=== PATIENT | female | born 1985 | race Caucasian/White ===

== ENCOUNTER 2022-02-13 15:25 | Outpatient (CLI) | payer BC, SELFPAY ==
--- OUTSIDE RECORDS SUMMARY | 2022-02-13 15:55 | XMS_ITS | Clinical Summary ---
:1985 Author Organization [facility] [place] [address] Care Team Providers Name Role Phone Pcp, No Primary Care Provider Unavailable Pcp, No Unavailable Unavailable Allergies No known active allergies Medications Medication Sig Dispensed Refills Start Date End Date Status vit,modesto Take 1 Tablet by 0 Active 74/iron/folic mouth once daily. ( VITAMIN 1+1 ORAL) Active Problems Problem Noted Date Melanoma 11/02/2020 Overview: 07/22/2019 Right upper thigh, Melanoma in situ: Excision 07/31/2019 2016 [facility]: [facility] Pharyngitis 10/27/2014 Family History Medical History Relation Name Comments Genetic Other Diabetes Gfather Relation Name Status Comments Other Social History Tobacco Use Types Packs/Day Years Used Date Never Smoker Smokeless Tobacco: Never Used Alcohol Use Standard Drinks/Week Comments Yes 0 (1 standard drink = 0.6 oz pure alcoho l) social Alcohol Habits Answer Date Recorded How often do you have a drink containing alcohol? Not asked How many drinks containing alcohol do you have on a typical Not asked day when you are drinking? How often do you have six or more drinks on one occasion? No t asked Comment: social 10/27/2014 Sex Assigned at Date Recorded Not on file Obstetrics History Para Term AB IAB SAB Ectopic Multiple Living Live Births 0 0 0 0 0 0 0 0 Last Filed Vital Signs Vital Sign Reading Time Taken Comments Blood Pressure 122/83 04/10/2021 11:38 AM ACCIDENT INVESTIGATOR Pulse 105 04/10/2021 11:38 AM ACCIDENT INVESTIGATOR Temperature 36.6 ??C (97.9 ??F) 04/10/2021 11:38 AM ACCIDENT INVESTIGATOR Respiratory Rate 16 04/10/2021 11:38 AM ACCIDENT INVESTIGATOR Oxygen Saturation 100% 04/10/2021 11:38 AM ACCIDENT INVESTIGATOR Inhaled Oxygen Concentration - - Weight 79.4 kg (175 lb) 04/10/2021 11:38 AM ACCIDENT INVESTIGATOR Height 162.6 cm (5' 4) 04/10/2021 11:38 AM ACCIDENT INVESTIGATOR Body Mass Index 30.04 04/10/2021 11:38 AM ACCIDENT INVESTIGATOR Plan of Treatment Health Maintenance Due Date Last Done Comments Tdap 1997 Depression screening for age 12+ 1998 Hepatitis C screening for age 18-79 2004 Tetanus booster 2006 Pap test for age 21-65 2007 COVID-19 vaccine series (4 - Booster 04/20/2021 02/23/2021, 07/02/2020, for Moderna series) 06/04/2020 Influenza for age 9-49 12/08/2021 BMI (ht and wt on same day) for age 0104/10/2022 04/10/2021 18+ Results Not on filefrom Last 3 Months Insurance Payer Benefit Plan / Subscriber ID Effective Dates Phone Addre ss Type Group [employer]UE [employer]OSS BL[employer] OF [id number] 2014-Present [address] [place] [address] [employer] [place] [id number] 2017-Present [address] [place] [address] [address] (Home) [address] [facility] [facility] [address] Kendrick Barajas Personal/Famil Self 1985 [address] (Home) [place] [address] Care Teams Finance Officer Relationship Specialty Start Date End Date Pcp, No PCP - General 10/27/14 . Pcp, No 10/27/14 .
[2022-02-13 17:43] LABS: HIV 1/2/P24 Combo Screen* Negative (Negative)
[2022-02-13 18:29] LABS: Chlamydia DNA Amplified* NOT DETECTED (No Detected); GC DNA Amplified* NOT DETECTED (No Detected)
[2022-02-13 18:35] LABS: Hepatitis B Surface Antigen* Negative (Negative)
[2022-02-13 18:52] LABS: Hepatitis C Virus Antibody* Negative (Negative)
[2022-02-16 05:48] LABS: Rubella Antibody IgG 45.2 IU/mL
[2022-02-16 09:03] LABS: Rapid Plasma Reagin (RPR) Non Reactive (Non Reactive)
== END 2022-02-13 15:26 | disposition home or self-care (01) ==
PROVIDERS: Visit Provider Advanced Practice Midwife
DX: Z34.81 Encounter for supervision of other normal pregnancy, first trimester (principal); Z3A.08 8 weeks gestation of pregnancy
CPT/HCPCS: 76817; 86592; 86703; 86762; 86787; 86803; 86850; 86900; 86901; 87086; 87340; 87491; 87591; 87624; 88175

== ENCOUNTER 2022-04-11 12:45 | Outpatient (CLI) | payer BC, SELFPAY ==
[2022-04-14 08:19] LABS: Dating Other; Family Hx Neural Tube Defect No; Insulin Req Maternal Diabetes No; Maternal Age At Delivery 36.4 yr; Maternal Race Nonblack; Maternal Screen Interpretation Screen Neg; Maternal Weight 180.0 lbs.; MoM for AFP 0.95; Number of Fetuses Singleton; Patient's AFP 31 ng/mL; Smoking No
== END 2022-04-11 12:46 | disposition home or self-care (01) ==
LOC: NFLDREF 12:48
PROVIDERS: Visit Provider Physician Assistant
DX: O09.523 Supervision of elderly multigravida, third trimester (principal); Z3A.16 16 weeks gestation of pregnancy
CPT/HCPCS: 81511

== ENCOUNTER 2022-05-03 14:23 | Outpatient (CLI) | payer BC, SELFPAY | END 2022-05-03 14:24 | disposition home or self-care (01) | LOC: US 14:24 | PROVIDERS: Visit Provider Pediatrics Neonatal-Perinatal Medicine | DX: O09.522 Supervision of elderly multigravida, second trimester (principal); Z3A.19 19 weeks gestation of pregnancy | CPT/HCPCS: 76811 ==

== ENCOUNTER 2022-07-04 15:13 | Outpatient (CLI) | payer BC, SELFPAY | END 2022-07-04 15:14 | disposition home or self-care (01) | LOC: NFLDREF 07-07 10:46 | PROVIDERS: Visit Provider Registered Nurse | DX: Z34.93 Encounter for supervision of normal pregnancy, unspecified, third trimester (principal); Z3A.28 28 weeks gestation of pregnancy | CPT/HCPCS: 86592 ==

== ENCOUNTER 2022-07-06 08:20 | Outpatient (CLI) | payer BC, SELFPAY | END 2022-07-06 08:21 | disposition home or self-care (01) | LOC: NFLDREF 18:19 | PROVIDERS: Visit Provider Registered Nurse | DX: Z34.90 Encounter for supervision of normal pregnancy, unspecified, unspecified trimester (principal); R89.9 Unspecified abnormal finding in specimens from other organs, systems and tissues | CPT/HCPCS: 82951; 82952 ==

== ENCOUNTER 2022-08-01 15:56 | Outpatient (CLI) | payer BC, SELFPAY ==
--- NOTE | 2022-08-01 16:00 | CRLHL7_ITS ---
For Patients: As a result of the Century Cures Act, medical imaging exams and procedure reports are released immediately into your electronic medical record. You may view this report before your referring provider. If you have questions, please contact your health care provider. INDICATION: COVID in . Check growth. TECHNIQUE: Transabdominal obstetrical ultrasound. FINDINGS: Single living intrauterine in breech presentation. Posterior placenta. heart rate 137 beats per minute. Normal amniotic fluid. Single deepest pocket measurement 3.1 cm. Biparietal diameter 8.3 cm, 33 weeks 2 days, 66th percentile. Head circumference 31 cm, 34 weeks 5 days, 69th percentile. Abdominal circumference 29 cm, 33 weeks 0 days, 63rd percentile. Femur length 6.3 cm, 32 weeks 4 days, 38th percentile. Composite calculated ultrasound age 33 weeks 3 days with a sonographic due date of September 16, 2022. Estimated weight 2114 g which lies at the 56 percentile. The head to abdominal circumference ratio is normal at 1.07 (0.95-1.11). IMPRESSION: Single living intrauterine in breech presentation. Composite calculated ultrasound age 33 weeks 3 days with a sonographic due date of September 16, 2022. Dictated by Jareth Mcnair MD @ 08/01/2022 6:58:57 PM (Electronically Signed)
== END 2022-08-01 15:57 | disposition home or self-care (01) ==
LOC: US 15:57
PROVIDERS: Visit Provider Registered Nurse
DX: U07.1 COVID-19 (principal); O98.513 Other viral diseases complicating pregnancy, third trimester; Z3A.33 33 weeks gestation of pregnancy
CPT/HCPCS: 76816

== ENCOUNTER 2022-09-15 05:09 | Inpatient (IN) | payer BC, SELFPAY ==
[2022-09-15] VITALS (37 sets, daily range): BP systolic 92–124; BP diastolic 60–83; PULSE 60–129; RESP 16; TEMP 36.2–36.9; O2SAT 96–99; BMI 32.9
[2022-09-15] MEDS: LACTATED RINGERS 1000 ML 1,000 ML 500 ML IV ×2 (05:51→14:02)
[2022-09-15 06:13] LABS: Basophils Absolute Auto 0.03 K/uL (0.00-0.30); Basophils Percent Auto 0.4 % (0.0-3.0); Eosinophils Absolute Auto 0.14 K/uL (0.00-0.50); Eosinophils Percent Auto 1.8 % (0.0-7.0); Hematocrit 35.2 % (33.0-51.0); Hemoglobin* 12.1 gm/dL (12.0-16.0); Immature Granulocytes Pct Auto 1.3 %; Lymphocytes Absolute Auto 1.97 K/uL (0.90-2.90); Lymphocytes Percent Auto 25.4 % (20-44); Mean Corpuscular HGB Conc 34 gm/dL (32-36); Mean Corpuscular Hemoglobin 32 pg (26-34); Mean Corpuscular Volume 92 fL (80-100); Monocytes Percent Auto 6.7 % (0.0-11.0); Neutrophils Absolute Auto 5.01 K/uL (1.7-7.0); Neutrophils Percent Auto 64.4 % (42.0-72.0); Platelet Count* 200 K/uL (140-440); Red Blood Count 3.82 m/uL (4.00-5.20); White Blood Count* 7.77 K/uL (4.50-11.00)
[2022-09-15 06:15] LABS: Slide Review Reflex No
--- NOTE | 2022-09-15 07:22 | W.ANESCHARGE ---
Anesthesia Charges Start Date/Time Anesthesia Start Date: 09/15/22 Anesthesia Start Time: 07:20 Stop Date/Time Anesthesia Stop Date: 09/15/22 Anesthesia Stop Time: 08:50
[2022-09-15] MEDS: CEFAZOLIN 2 GM INJ IVP (07:28)
[2022-09-15] MEDS: KETOROLAC 30 MG/ML inj IVP ×3 (08:22→20:19)
--- NOTE | 2022-09-15 08:40 | PM.OBPRCCS ---
Procedure Procedure Done: Global Anesthesia type: TAP block Complications: None. Disposition: floor Infant total score - 1 minute: 8 total score - 5 minute: 9 OB Delivery Proc Additional Procedures Tubal Ligation at the time of : No Procedure Details: PREOPERATIVE DIAGNOSES: 1. Intrauterine at 39 0/7 weeks' gestation. 2. History of prior low transverse section x1, desiring repeat. POSTOPERATIVE DIAGNOSES: 1. Intrauterine at 39 0/7 weeks' gestation. 2. History of prior low transverse section x1, desiring repeat. NAME OF PROCEDURE: Repeat low transverse section. Lysis of adhesions. SURGEON: Prema. ANESTHESIA: Spinal. COMPLICATIONS: None. ESTIMATED BLOOD LOSS: 720 mL. DRAINS: Calhoun to gravity. FINDINGS: Live-born female infant, cephalic presentation, nuchal cord x1, Apgars 8 and 9 at 1 and 5 minutes respectively. weight 3500 g or 7 lb 11 oz. Normal appearing uterus, tubes, and ovaries. Moderate adhesions between rectus muscles, fascia, and underlying peritoneal PROCEDURE: After obtaining informed consent, the patient was taken to the operating room where spinal anesthesia was obtained and found to be adequate. She was prepared and draped in the normal sterile fashion in the dorsal supine position with a leftward tilt. A Pfannenstiel skin incision was made with a scalpel along the line of the patient's previous Pfannenstiel scar. This incision was carried down to the underlying layer of fascia with the Bovie. The fascia was incised in the midline and the incision extended laterally. The superior and inferior aspects of the fascial incision were grasped with Jas clamps, elevated and the underlying rectus muscles dissected off sharply and with electrocautery. This dissection took an increased amount of time given the moderate adhesions. The rectus muscles were then in the midline. The Neeraj O retractor was then placed into the incision. The lower uterine segment was then incised in a transverse fashion with the scalpel. Upon entry into the uterus, clear amniotic fluid was noted. The uterine incision was extended laterally with blunt finger fractionation. The 's head was delivered atraumatically, followed by the remainder of the infant's body. The nose and mouth were suctioned with the bulb suction. The cord was doubly clamped and cut, and the infant was handed off the field for evaluation. The placenta was delivered spontaneously with umbilical cord traction and fundal massage. The uterus was cleared of all clots and debris. The uterine incision was reapproximated in a running locking fashion with a 0 chromic suture. A 2nd layer of the same suture was used to imbricate in horizontal fashion. Two additional figure of X sutures of 0 chromic were used at the lateral aspects the hysterotomy incision on both sides for hemostasis. The gutters were irrigated and suctioned. All instruments and retractors were removed. The anterior peritoneum was reapproximated in a running fashion with a 3-0 Vicryl suture. The subfascial tissues were carefully inspected and hemostasis assured. The fascia was reapproximated in a running fashion with a looped 0 Maxon suture. The subcutaneous tissues were copiously irrigated. Hemostasis was assured. The skin was closed in a subcuticular fashion with 4-0 Vicryl. Exofin surgical glue and dressing were applied. A TAP block was administered by the DOCTOR NATUROPATHIC. The patient tolerated the procedure well. Sponge, lap, needle, and instrument counts were reported as correct x2. The patient was taken to the recovery room, awake, and in stable condition. She did receive 2 grams of IV Ancef preoperatively and 30 mg IV Toradol at the conclusion of the procedure.
--- NOTE | 2022-09-15 08:48 | W.PM.NB ---
Nerve Block Nerve Block Time Seen by Provider: 08:40 Date Seen: 09/15/22 Type of block requested by surgeon for post-operative analgesia: TAP Side: bilateral Time out performed: Yes Verification of patient name: Yes Verification of date of : Yes Site marking: site marked Name of person performing procedure: Michael Continuous monitoring Was continuous monitoring of O2 sat, B/P, striping machine operator, recorded every 15 minutes?: Yes Procedure Checklist: sterile prep, needles and gloves Ultrasound guided. Images saved: Yes Medications given in 5ml increments after negative aspiration: Marcaine %: 0.25 mL: 30 Needle gauge: 20 and Exparel mL: 10 Patient tolerated procedure well: Yes Additional comments: Needle noted adjacent to nerve Block Charges Block Charge (with Pro Fee): TAP Bilateral Use of Ultrasound Machine for Block: Yes- US Guidance/pain block
--- NOTE | 2022-09-15 09:01 | W.ANESCHARGE ---
Anesthesia Charges Start Date/Time Anesthesia Start Date: 09/15/22 Anesthesia Start Time: 07:20 Stop Date/Time Anesthesia Stop Date: 09/15/22 Anesthesia Stop Time: 08:50
[2022-09-15] MEDS: LACTATED RINGERS 1000 ML 1,000 ML 125 ML IV (10:01)
[2022-09-15] MEDS: ONDANSETRON 2 MG/ML inj 4 MG IV (10:21)
[2022-09-15] MEDS: PROCHLORPERAZINE 5 MG/ML VIAL 10 MG IV (14:03)
[2022-09-15 15:30] LABS: Blood Urea Nitrogen* 6 mg/dL (5-24); Creatinine* 0.3 mg/dL (0.5-1.5); Est. Creatinine Clearance* 223.86; Estimated Glomerular Filt Rate 141 ml/min
[2022-09-16] VITALS (14 sets, daily range): BP systolic 97–114; BP diastolic 63–75; PULSE 72–81; RESP 16; TEMP 36.4–36.8; O2SAT 96–98
[2022-09-16] MEDS: ACETAMINOPHEN 500 MG TABLET 1000 MG PO ×2 (00:26→21:49)
[2022-09-16] MEDS: KETOROLAC 30 MG/ML inj IVP ×3 (02:28→14:35)
[2022-09-16] MEDS: DOCUSATE SODIUM 100 MG CAPSULE PO (08:13)
--- NOTE | 2022-09-16 08:43 | P.OBPN_ITS ---
OB - PN: A/P Plan day: 1 Plan: routine postop care Comments: Patient would like to be discharged home tomorrow if continues to be stable. OB - PN: Subj Subjective Date Seen: 09/16/22 Patient comments: no complaints, pain well controlled, tolerating diet and flatus present [place] status: and doing well [place] feeding status: exclusively Narrative: Kendrick is a 37 y.o. who was admitted to [facility] for repeat delivery. ?She had an uncomplicated .?The patient feels well. ?The pain is well controlled with current medications. ?She has no new complaints. ?She is and reports things are going well.? the patient has done well.? Vitals have been stable.? She has remained afebrile.? Has a good appetite, is tolerating a general diet. ?She is voiding without difficulty.? She is passing gas and has not had a bowel movement.? She is ambulating and denies any dizziness.? Has Small amount of rubra lochia. OB - PN: Obj Exam Physical Exam: Vital signs: Temp Pulse Resp BP Pulse Ox O2 Del Method 97.5 F L 77 16 97/63 96 Room Air 09/16/22 08:26 09/16/22 08:26 09/16/22 08:26 09/16/22 08:26 09/16/22 08:26 09/16/22 08:26 Narrative: VITAL SIGNS: As noted above. GENERAL APPEARANCE: Alert, cooperative female in no acute distress. MOOD & AFFECT: Normal. ABDOMEN: Soft, non-distended and appropriately tender, uterus well contracted at umbilicus. Incision covered by surgical dressing and this is dry, no surrounding erythema. : Normal lochia. EXTREMITIES: Nonedematous. Well perfused. Nontender. Urinary Catheter Management: Urethral: Cath placed during this visit: yes, but has since been removed by the nurse Reason for continuing: decision to DC catheter Insertion date: 09/15/22 Insertion time: 07:30 Removal date: 09/15/22 Removal time: 22:45 OB - PN: Obj Data Labs Labs: Laboratory Results - last 24 hr 09/15/22 09/16/22 15:08 07:00 Hgb 11.0 L BUN 6 Creatinine 0.3 L Estimated Creat Clear 223.86 Estimated GFR 141
[2022-09-16] MEDS: IBUPROFEN 600 MG TABLET PO (19:40)
[2022-09-17 01:30] VITALS: BP 107/64; PULSE 95; RESP 16; TEMP 36.6; O2SAT 98
[2022-09-17] MEDS: IBUPROFEN 600 MG TABLET PO ×2 (01:30→08:31)
--- NOTE | 2022-09-17 03:58 | P.DS_ITS ---
DS: Providers Provider Date Seen: 09/17/22 Date of admission: 09/15/22 05:09 Primary care physician: Not a Local Provider Admitting Clinician: Ivette Lloyd MD Attending Physician on discharge: Malia Fenton MD Date of Discharge: 09/17/22 DS: Diagnosis Discharge Diagnosis (1) Status post repeat low transverse section: Status: Acute Exam Narrative: Exam Narrative: VITAL SIGNS: As noted above. GENERAL APPEARANCE: Alert, cooperative female in no acute distress. MOOD & AFFECT: Normal. ABDOMEN: Soft, non-distended and appropriately tender, incision healing well no surrounding erythema, induration or abnormal discharge. : Normal lochia. EXTREMITIES: Nonedematous. Well perfused. Nontender. Const: Vital Signs, click to edit/add: Vital Signs - 24 hr 09/16/22 03:59 09/16/22 04:40 09/16/22 04:59 Temperature 98.0 F Pulse Rate [Apical ] 72 Respiratory Rate 16 16 16 Blood Pressure [Le ft Arm] 101/64 Pulse Oximetry 96 Oxygen Delivery Me thod Room Air 09/16/22 05:59 09/16/22 06:59 09/16/22 07:59 Temperature Pulse Rate [Apical ] Respiratory Rate 16 16 16 Blood Pressure [Le ft Arm] Pulse Oximetry Oxygen Delivery Me thod 09/16/22 08:26 09/16/22 16:15 09/16/22 18:01 Temperature 97.5 F L 98.2 F Pulse Rate [Apical ] 77 81 73 Respiratory Rate 16 16 Blood Pressure [Le ft Arm] 97/63 103/68 Pulse Oximetry 96 98 Oxygen Delivery Me thod Room Air Room Air 09/16/22 20:18 Temperature 98.3 F Pulse Rate [Apical ] 73 Respiratory Rate 16 Blood Pressure [Le ft Arm] 114/75 Pulse Oximetry 98 Oxygen Delivery Me thod Room Air DS: Data Data Completed and Pending Labs on day of discharge: Labs from last 24 hours 09/16/22 07:00 Hgb 11.0 L OB - DS: Summary Hospital Course Hospital Course: The patient is a 37 year old G 3 P 2012 at 39 0/7 weeks gestation that was admitted to the Center on 09/15/22 for repeat delivery. She had an uncomplicated delivery. She delivered a viable female infant. She is breast feeding. the patient has done well. Peripartum Data Procedures: Procedures Operation Date: 09/15/22 07:15 Actual Procedure Side Surgeon p Repeat Section Not Applicable Ivette Lloyd MD complications: none [place] Infant Gender: Female Status at Discharge Functional status at discharge: independent ambulation Overall status at discharge: patient is progressing back to baseline Time Spent with Patient Time attestation: Total time spent providing and/or coordinating discharge services: Time spent: Less than 30 minutes Discharge Plan Discharge Disposition: Home, Self-Care Date of Admission: 09/15/22 05:09 Attending Provider on Discharge: Malia Fenton Consulting Providers: Malia Fenton Primary Care Provider: Provider,Not a Local Condition: Stable Anticipated Discharge Date/Time: 09/17/22 12:00 Discharge Medications: Continued cholecalciferol (vitamin D3) 75 mcg (3,000 unit) tablet 75 mcg PO QDAY calcium carbonate-vit D3-min 600 mg calcium- 200 unit tablet 2 tab PO PRN prenat.vits,modesto,mos-ogni-stlew Tablet 1 tab PO QDAY Discharge Orders: Discharge Order (Routine); Ordered 09/17/22 Ordered By: Malia Fenton Patient Education: OB /Breast Feeding Activity Level: No Weight Bearing Activity Detail: No lifting more than 15-20 pounds for 6 weeks, nothing vaginally for 6 weeks Discharge Diet: Regular Follow Up Appointments: Provider,Not a Local [Primary Care Provider] - Forms: MyHealth Info Instructions Discharge Comments: Follow up in clinic in 2 and 6 weeks .
[2022-09-17] MEDS: ACETAMINOPHEN 500 MG TABLET 1000 MG PO (05:39)
[2022-09-17] MEDS: DOCUSATE SODIUM 100 MG CAPSULE PO (08:31)
[2022-09-17 08:35] VITALS: BP 118/81; PULSE 74; RESP 16; TEMP 36.8; O2SAT 96
== END 2022-09-17 11:50 | disposition home or self-care (01) | DRG 540 ==
PROVIDERS: Admitting Provider Obstetrics & Gynecology; Visit Provider Obstetrics & Gynecology
PROC: 10D00Z1 Extraction of Products of Conception, Low, Open Approach (ICD-10-PCS; CPT 59514; principal; 2022-09-15 07:15)
DX: O34.211 Maternal care for low transverse scar from previous cesarean delivery (principal); Z3A.39 39 weeks gestation of pregnancy; Z37.0 Single live birth; G89.18 Other acute postprocedural pain
CPT/HCPCS: 01961; 36415; 51798; 64488; 76815; 76942; 82565; 84520; 85018; 85025; 86850; 86900; 86901; A9270; C9290; J0690; J0780; J1885; J2274; J2370; J2405; J2590; J3490; J7120

== ENCOUNTER 2023-09-05 08:31 | Outpatient (CLI) | payer OTHER, SELFPAY ==
--- OUTSIDE RECORDS SUMMARY | 2023-09-05 08:36 | XMS_ITS | Clinical Summary ---
Author Organization [facility] Address [place], [place] [address] Care Team Providers Care Snag Grinder Name Role Phone Pcp, No Primary Care Provider Unavailabl e Pcp, No Unavailable Unavailable Allergies No known active allergies Medications Medication Sig Dispensed Refills Start Date End Date Status vit,modesto 74/iron/folic ( VITAMIN 1+1 ORAL) Take 1 Tablet by mouth once daily. Active ferrous sulfate, 65 mg elemental, tablet Take 325 mg by mouth once daily. 07/04/2022 Active Active Problems Problem Noted Date Diagnosed Date History of melanoma 02/26/2023 Pain in back 03/10/2019 Fusion of spine, thoracolumbar region 03/10/2019 Adolescent idiopathic scoliosis 03/10/2019 Pharyngitis 10/27/2014 Resolved Problems Problem Noted Date Diagnosed Date Resolved Date Melanoma 11/02/2020 02/26/2023 Overview: 07/22/2019 Right upper thigh, Melanoma in situ: Excision 07/31/2019 2016 Melanoma on neck: [facility] Patient transitioned care to a dermatology clinic in [place]. Immunizations Name Administration Dates Next Due COVID-19 Vaccine Spikevax (M oderna 50mcg/0.5mL) 12YO+ [id number] Formula PF 02/26/2023 Influenza, IIV4 02/26/2023, 2,01/24/2021,01/26/20 20,01/21/2019 Tdap 07/17/2022,12/16/2019,05/28/2015 Family History Medical History Relation Name Comments Genetic Other Diabetes Gfathe r Relation Name Status Comments Other Social History Tobacco Use Types Packs/Day Years Used Date Smoking Tobacco: Never Smokeless Tobacco: Never Alcohol Use Standard Drinks/Week Comments Yes 0 (1 standard drink = 0.6 oz pur e alcohol) social PHQ-2 Answer Date Recorded PHQ-2 TOTAL SCORE 0 02/26/2023 Social Connections Answer Date Recorded Frequency of Communication with Friends and Fami ly Not on file 02/26/2023 Sex and Gender Information Value Date Recorded Sex Assigned at Not on file Gender Identity Not on file Sexual Orientation Not on file Obstetrics History Para Term AB IAB SAB Ectopic Multiple Livin g Live Births 0 0 0 0 0 0 0 0 Last Filed Vital Signs Vital Sign Reading Time Taken Comments Blood Pressure 92/58 02/26/2023 8:05 AM FLOOR MANAGER Pulse 68 02/26/2023 8:05 AM FLOOR MANAGER Temperature 36.6 ??C (97.9 ??F) 04/10/2021 11:[address] Respiratory Rate 16 04/10/2021 11:38 AM FLOOR MANAGER Oxygen Saturation 100% 04/10/2021 11:38 AM FLOOR MANAGER Inhaled Oxygen Concentration - - Weight 80.7 kg (178 lb) 02/26/2023 8:05 AM FLOOR MANAGER Height 162.6 cm (5' 4) 04/10/2021 11:38 AM FLOOR MANAGER Body Mass Index 30.55 04/10/2021 11:38 AM FLOOR MANAGER Plan of Treatment Health Maintenance Due Date Last Done Comments HIV for age 15-65 2001 Hepatitis C screening for age 18-79 2004 BMI (ht and wt on same day) for age 18+ 04/10/2022 04/10/2021 Influenza for age 9-49 12/09/2023 , 01/13/2022, 01/24/2021, Additional history exists Depression screening for age 12+ 02/27/2024 02/26/2023 Pap test for age 21-65 02/13/2025 02/13/2022, 2021 Tetanus booster 07/17/2032 07/17/2022, 09/0 11/2019, 05/28/2015 Tdap Completed 07/17/2022, 09/0 11/2019, 05/28/2015 COVID-19 vaccine series Completed 02/27/20 23, 02/23/2021, 07/02/2020, Additional history exists Pneumococcal series for age 6-64 Aged Out No longer eligible based on patient's age to complete this topic Procedures Procedure Name Priority Date/Time Associated Diagnosis Comments HPV THIN PREP Routine 02/13/2022 3:25 PM FLOOR MANAGER from Last 3 Months or Most Recently Relevant to Health Maintenance Results * HPV HIGH RISK (02/13/2022 3:25 PM FLOOR MANAGER) TYPE 16 Negative Negative 02/16/2022 11:39 AM FLOOR MANAGER [facility] TYPE 18 Negative Negative 02/16/2022 11:39 AM FLOOR MANAGER [facility] OTHER HIGH RISK TYPES Negative Negative 02/16/2022 11:39 AM FLOOR MANAGER [facility] Other (Cervical) 02/13/2022 3:25 PM FLOOR MANAGER 02/14/2022 4:02 PM FLOOR MANAGER Narrative [facility] - 02/16/2022 11:39 AM FLOOR MANAGER HPV types 16, 18, 31, 33, 35, 39, 45, 51, 52, 56, 58, 59, 66 and 68 DNA were undetectable or below the pre-set threshold. Methodology: Debbie Eric 4800 HPV Test G[facility] MICROBIOLOGY [facility] [address] [place] [address], from Last 3 Months or Most Recently Relevant to Health Maintenance Care Teams Snag Grinder Relationship Specialty Start Date End Date Pcp, No . PCP - General 10/27/14 Pcp, No . 10/27/14
== END 2023-09-05 08:32 | disposition home or self-care (01) ==
PROVIDERS: PCP Family Medicine; Visit Provider Family Medicine
DX: Z13.220 Encounter for screening for lipoid disorders (principal); R53.83 Other fatigue; Z13.0 Encounter for screening for diseases of the blood and blood-forming organs and certain disorders involving the immune mechanism; Z13.29 Encounter for screening for other suspected endocrine disorder
CPT/HCPCS: 80053; 80061; 82728; 84443

== ENCOUNTER 2024-02-22 11:28 | Outpatient (CLI) | payer OTHER, SELFPAY ==
--- NOTE | 2024-02-22 11:30 | CRLHL7_ITS ---
For Patients: As a result of the Century Cures Act, medical imaging exams and procedure reports are released immediately into your electronic medical record. You may view this report before your referring provider. If you have questions, please contact your health care provider. INDICATION: First trimester scan, establish dates. TECHNIQUE: Real-time nevarez-scale imaging of the pelvis was performed. FINDINGS: Sonographic imaging demonstrates a single living intrauterine gestation. The embryo demonstrates a regular cardiac rate measuring 180 beats per minute. The embryo`s crown-rump length measurement of cm corresponds to a gestational age of with a sonographic due date of . There is a normal-appearing yolk sac. There are no gross abnormalities noted within the embryo at this early state of development. The placenta has not yet developed. The gestational sac has a normal appearance and there is no evidence of a perigestational hemorrhage. The amount of fluid within the sac appears appropriate for gestational age. There is a 1.4 x 1 x 1.7 centimeter right-sided uterine fibroid There are 2 simple appearing right adnexal cyst measuring 2.3 centimeters and 1.2 centimeters. There is a corpus luteum cyst in the right ovary measuring 3.4 centimeters the left ovary appears unremarkable. IMPRESSION: 1. early intrauterine gestation at 9 weeks 0 days LOS of 09/27/2023. Small right-sided uterine fibroid. 2. Two simple appearing right paraovarian cysts. Dictated by Ila Coppola MD @ 02/24/2024 11:40:25 AM (Electronically Signed)
--- OUTSIDE RECORDS SUMMARY | 2024-02-22 11:30 | XMS_ITS | Clinical Summary ---
Author Organization [facility] [facility] Address [place], [place] [address] Care Team Providers Care Sales Representative Door To Door Name Role Phone Pcp, No Primary Care [...] Diagnosed Date Resolved Date Melanoma 11/02/2020 02/26/2023 Overview (08/28/2022): 07/22/2019 Right upper thigh, Melanoma in situ: Excision 07/31/2019 2016 Melanoma [facility] neck: [facility] Patient transitioned care to a dermatology clinic in [place]. Immunizations Name Administration Dates Next Due COVID-19 VACCINE SPIKEVAX (M ODERNA 50MCG/0.5ML) 12YO+ PFS 02/26/2023 Influenza, IIV4 02/26/2023, 2,01/24/2021,01/26/20 20,01/21/2019 Tdap [...] Comments Blood Pressure 92/58 02/26/2023 8:05 AM WEBBING TACKER Pulse 68 02/26/2023 8:05 AM WEBBING TACKER Temperature 36.6 ??C (97.9 ??F) 04/10/2021 11:[address] Respiratory Rate 16 04/10/2021 11:38 AM WEBBING TACKER Oxygen Saturation 100% 04/10/2021 11:38 AM WEBBING TACKER Inhaled Oxygen Concentration - - Weight 80.7 kg (178 lb) 02/26/2023 8:05 AM WEBBING TACKER Height 162.6 cm (5' 4) 04/10/2021 11:38 AM WEBBING TACKER Body Mass Index 30.55 04/10/2021 11:38 AM WEBBING TACKER Plan of Treatment Health Maintenance Due Date Last Done Comments HIV for age 15-65 2001 Hepatitis C screening for age 18-79 2004 BMI (ht and wt on same day) for age 18+ 04/10/2022 04/10/2021 COVID-19 vaccine series (2023- season) 2023 02/26/2023, 02/23/2021, 07/02/2020, Additional history exists Influenza for age 9-49 12/09/2023 , 01/13/2022, 01/24/2021, Additional history exists Depression screening for age 12+ 02/27/2024 02/26/2023 Pap test for age 21-65 02/13/2025 02/13/2022, 2021 Tetanus booster 07/17/2032 07/17/2022, 11/2019, 05/28/2015 Tdap Completed 07/17/2022, 11/2019, 05/28/2015 Pneumococcal series for age 6-64 Aged Out No longer eligible based on patient's age to complete this topic Procedures Procedure Name Priority Date/Time Associated Diagnosis Comments HPV HIGH RISK Routine 02/13/2022 3:25 PM WEBBING TACKER from Last 3 Months or Most Recently Relevant to Health Maintenance Results * HPV HIGH RISK (02/13/2022 3:25 PM WEBBING TACKER) TYPE 16 Negative Negative 02/16/2022 11:39 AM WEBBING TACKER [facility] [employer] [facility] TYPE 18 Negative Negative 02/16/2022 11:39 AM WEBBING TACKER [facility] OTHER HIGH RISK TYPES Negative Negative 02/16/2022 11:39 AM WEBBING TACKER [facility] Other (Cervical) 02/13/2022 3:25 PM WEBBING TACKER 02/14/2022 4:02 PM WEBBING TACKER Narrative [facility] - 02/16/2022 11:39 AM WEBBING TACKER HPV types 16, 18, 31, 33, 35, 39, 45, 51, 52, 56, 58, 59, 66 and 68 DNA were undetectable or below the pre-set threshold. Methodology: Debbie Eric 4800 HPV Test [facility] [address] [place] [address], from Last 3 Months or Most Recently Relevant to Health Maintenance Care Teams Sales Representative Door To Door Relationship Specialty Start Date End Date Pcp, No . PCP - General 10/27/14 Pcp, No . 10/27/14
== END 2024-02-22 11:29 | disposition home or self-care (01) ==
LOC: US 11:28
PROVIDERS: PCP Family Medicine; Visit Provider Registered Nurse
DX: Z34.91 Encounter for supervision of normal pregnancy, unspecified, first trimester (principal); O34.81 Maternal care for other abnormalities of pelvic organs, first trimester; N83.201 Unspecified ovarian cyst, right side; Z3A.09 9 weeks gestation of pregnancy
CPT/HCPCS: 76817

== ENCOUNTER 2024-02-22 13:29 | Outpatient (CLI) | payer OTHER, SELFPAY ==
--- OUTSIDE RECORDS SUMMARY | 2024-02-22 13:31 | XMS_ITS | Clinical Summary ---
Author Organization [email or web address] Address [place], [place] [address] Care Team Providers Care Industrial Tractor Driver Name Role Phone Pcp, No Primary Care [...] transitioned care to a dermatology clinic in [place]. Immunizations Name Administration Dates Next Due COVID-19 [...] Comments Blood Pressure 92/58 02/26/2023 8:05 AM RAIL B[facility]DER Pulse 68 02/26/2023 8:05 AM [facility] Temperature 36.6 ??C (97.9 ??F) 04/10/2021 11:[address] Respiratory Rate 16 04/10/2021 11:38 AM RAIL [facility]DER Oxygen Saturation 100% 04/10/2021 11:38 AM [facility] Inhaled Oxygen Concentration - - Weight 80.7 kg (178 lb) 02/26/2023 8:05 AM [facility] Height 162.6 cm (5' 4) 04/10/2021 11:38 AM [facility] Body Mass Index 30.55 04/10/2021 11:38 AM [facility] Plan of Treatment Health Maintenance Due Date [...] HPV HIGH RISK Routine 02/13/2022 3:25 PM [facility]IL [facility] from Last 3 Months or Most Recently Relevant to Health Maintenance Results * HPV HIGH RISK (02/13/2022 3:25 PM RAIL [facility]) TYPE 16 Negative Negative 02/16/2022 11:39 AM [facility] [employer] [facility] TYPE 18 Negative Negative 02/16/2022 11:39 AM [facility] OTHER HIGH RISK TYPES Negative Negative 02/16/2022 11:39 AM [facility] Other (Cervical) 02/13/2022 3:25 PM [facility] 02/14/2022 4:02 PM [facility] Narrative [facility] - 02/16/2022 11:39 AM [facility] HPV types 16, 18, 31, 33, 35, 39, 45, 51, 52, 56, 58, 59, 66 and 68 DNA were undetectable or below the pre-set threshold. Methodology: Debbie Eric 4800 HPV Test [facility] I[facility] [address] [place] [address], from Last 3 Months or Most Recently Relevant to Health Maintenance Care Teams Industrial Tractor Driver Relationship Specialty Start Date End Date Pcp, No . PCP - General 10/27/14 Pcp, No . 10/27/14
[2024-02-22 16:28] LABS: Chlamydia DNA Amplified* NOT DETECTED (No Detected); GC DNA Amplified* NOT DETECTED (No Detected)
== END 2024-02-22 13:30 | disposition home or self-care (01) ==
PROVIDERS: PCP Family Medicine; Visit Provider Registered Nurse
DX: Z34.91 Encounter for supervision of normal pregnancy, unspecified, first trimester (principal); Z3A.09 9 weeks gestation of pregnancy
CPT/HCPCS: 86592; 86703; 86704; 86706; 86762; 86787; 86803; 86850; 86900; 86901; 87086; 87340; 87491; 87591

== ENCOUNTER 2024-05-14 09:14 | Outpatient (CLI) | payer OTHER, SELFPAY | END 2024-05-14 09:15 | disposition home or self-care (01) | LOC: US 09:15 | PROVIDERS: PCP Family Medicine; Visit Provider Registered Nurse | DX: O09.522 Supervision of elderly multigravida, second trimester (principal); Z3A.21 21 weeks gestation of pregnancy | CPT/HCPCS: 76811 ==

== ENCOUNTER 2024-07-02 10:04 | Outpatient (CLI) | payer OTHER, SELFPAY | END 2024-07-02 10:05 | disposition home or self-care (01) | LOC: NFLDREF 07-03 22:41 | PROVIDERS: PCP Family Medicine; Referring Provider Family Medicine; Visit Provider Obstetrics & Gynecology | DX: Z34.93 Encounter for supervision of normal pregnancy, unspecified, third trimester (principal); Z3A.28 28 weeks gestation of pregnancy | CPT/HCPCS: 86592 ==

== ENCOUNTER 2024-08-25 10:15 | Outpatient (CLI) | payer OTHER, SELFPAY ==
[2024-08-26 14:31] LABS: Strep B DNA Probe Negative (Negative)
[2024-08-26 14:32] LABS: Strep B Susceptibility Needed? No
== END 2024-08-25 10:16 | disposition home or self-care (01) ==
LOC: NFLDREF 10:16
PROVIDERS: PCP Family Medicine; Visit Provider Obstetrics & Gynecology
DX: Z34.83 Encounter for supervision of other normal pregnancy, third trimester (principal)
CPT/HCPCS: 87081; 87653

== ENCOUNTER 2024-09-16 19:21 | Outpatient (CLI) | payer OTHER, SELFPAY ==
[2024-09-16 19:41] VITALS: BP 111/72; PULSE 90
[2024-09-16 20:16] LABS: Amnisure Rom* Negative
--- NOTE | 2024-09-16 20:51 | PC.OBNST ---
NST Note NST Note Start: 09/16/24 19:28 Freq: ONCE Status: Active Protocol: Document 09/16/24 20:50 JUAN R (Rec: 09/16/24 20:51 JUAN R [id number]) NST Note 4 Para (# of births) 2 EDC 09/24/24 Gestational Age In 38 Weeks & 6 Days Weeks & Days Patient Presented Other with Complaint(s) of Other Complaints Yellow/Brown Discharge Reactive Yes RN Paul Augustin RN Date 09/16/24 Reactive Yes DUANE Flores RN Date 09/16/24 OB NST charge Yes Complete NST Note Yes via Write Note The provider's electronic signature indicates the NST is reactive/appropriate for gestational age. *Note to provider: If an addendum is required, open the patient's chart and click on the note under the Nurse/Allied Health tab.
== END 2024-09-16 20:41 | disposition home or self-care (01) ==
LOC: OB OUT 19:22 → OB 19:22
PROVIDERS: Obstetrics & Gynecology; PCP Family Medicine; Visit Provider Advanced Practice Midwife
DX: O47.1 False labor at or after 37 completed weeks of gestation (principal); Z3A.38 38 weeks gestation of pregnancy
CPT/HCPCS: 59025; 84112; G0463

== ENCOUNTER 2024-09-19 05:43 | Inpatient (IN) | payer OTHER, SELFPAY ==
[2024-09-19] VITALS (30 sets, daily range): BP systolic 92–113; BP diastolic 52–73; PULSE 57–98; RESP 16–18; TEMP 36.4–36.8; O2SAT 95–98
[2024-09-19] MEDS: LACTATED RINGERS 1000 ML 1,000 ML IV (06:35)
[2024-09-19 06:37] LABS: Basophils Absolute Auto 0.04 K/uL (0.00-0.30); Basophils Percent Auto 0.5 % (0.0-3.0); Eosinophils Absolute Auto 0.12 K/uL (0.00-0.50); Eosinophils Percent Auto 1.6 % (0.0-7.0); Hematocrit 35.1 % (33.0-51.0); Hemoglobin* 11.8 gm/dL (12.0-16.0); Immature Granulocytes Abs Auto 0.09 K/uL (0.00-0.30); Immature Granulocytes Pct Auto 1.2 %; Lymphocytes Absolute Auto 1.84 K/uL (0.90-2.90); Lymphocytes Percent Auto 24.8 % (20-44); Mean Corpuscular HGB Conc 34 gm/dL (32-36); Mean Corpuscular Hemoglobin 31 pg (26-34); Mean Corpuscular Volume 92 fL (80-100); Monocytes Percent Auto 6.7 % (0.0-11.0); Neutrophils Absolute Auto 4.84 K/uL (1.7-7.0); Neutrophils Percent Auto 65.2 % (42.0-72.0); Platelet Count* 206 K/uL (140-440); RDW Coefficient of Variation % 12.9 % (11.5-15.5); Red Blood Count 3.82 m/uL (4.00-5.20); White Blood Count* 7.43 K/uL (4.50-11.00)
[2024-09-19 06:41] LABS: Slide Review Reflex No
[2024-09-19] MEDS: CEFAZOLIN 1 GM inj 2 GM IVP (07:05)
[2024-09-19] MEDS: LACTATED RINGERS 1000 ML 1,000 ML 100 ML IV ×3 (07:15→08:05)
[2024-09-19] MEDS: LIDOCAINE 1 % PF 30 ML INJECTION (07:50)
--- NOTE | 2024-09-19 08:13 | SUR.OPER ---
surgeon declined to send placenta; verified by LIGHTER CAPTAIN and OR tech
[2024-09-19] MEDS: KETOROLAC 30 MG/ML inj IVP ×3 (08:37→20:38)
--- NOTE | 2024-09-19 08:59 | P.OBPRC_ITS ---
Procedure Date of procedure: 09/19/24 Pre-op diagnosis: 39 2/7 weeks, h/o c-sections x2, undesired fertility Post-op diagnosis: same Procedure Done: Global Will [facility] bill your pro fee for this procedure?: Yes Blood Loss Measurement Type: QBL (1030 mL) Bakri Used: No IV fluids (mL): 2,900 Urine Output (mL): 300 Surgeon: Ivette Lloyd Software Build Engineer: Soraida Marks Anesthesia Type: Spinal Findings: Dense adhesions between the rectus muscles and fascia, lower uterine segment and bladder, and right fallopian tube, right ovary, and bladder. Live-born female infant, cephalic presentation, weight 8 lb 0 oz or 3620 g. Normal-appearing uterus, thin lower uterine segment, normal left fallopian tube, tortuous right fallopian tube involved with adhesions as noted above. Procedure Name: Repeat low transverse section with bilateral salpingectomies. Procedure Description: After obtaining informed consent, the patient was taken to the operating room where spinal anesthesia was obtained. She was prepared and draped in the normal sterile fashion in the dorsal supine position with a leftward tilt. The spinal analgesia was tested and initially found to be inadequate on the right side. The patient was tilted slightly to her right, and better analgesia was noted after a few minutes. Ten mL 1% lidocaine plain was injected subcutaneously along the Pfannenstiel scar on the right. Adequate analgesia was observed. A Pfannenstiel skin incision was made with a scalpel along the line of the patient's previous Pfannenstiel scar. This incision was carried down to the underlying layer of fascia with the Bovie. The fascia was incised in the midline and the incision extended laterally. The superior and inferior aspects of the fascial incision were grasped with Jas clamps, elevated and the underlying rectus muscles dissected off sharply and with electrocautery. This dissection took an increased amount of time given the dense adhesions. The rectus muscles were then in the midline. The adhesions between the bladder and lower uterine segment were taken down sharply with Metzenbaum scissors. The Neeraj O retractor was then placed into the incision. The lower uterine segment was then incised in a transverse fashion with the scalpel. There was brisk bleeding noted. Upon entry into the uterus, membranes bulged, were ruptured with the pickups. The uterine incision was extended laterally with blunt finger fractionation. The 's head was delivered atraumatically, followed by the remainder of the infant's body. The nose and mouth were suctioned with the bulb suction. The cord was doubly clamped and cut after a 30 second delay, and the was handed off the field for evaluation. Ring forceps were placed across uterine vessels at the hysterotomy site that were briskly bleeding. The placenta was delivered spontaneously with umbilical cord traction and fundal massage. The uterus was cleared of all clots and debris. The uterine incision was reapproximated in a running locking fashion with a 0 chromic suture. A 2nd layer of the same suture was used to imbricate in horizontal fashion. Of note, there was an apparent venous sinus that continued to cause significant bleeding during the two layer closure. Additional chromic sutures were needed along the left lateral aspect of the hysterotomy closure. Ultimately, excellent hemostasis was obtained. The uterus could not be exteriorized due to patient discomfort. The uterus was slightly tilted to the right in vivo. The left fallopian tube was followed to its fimbrial end, grasped with two Joey clamps and elevated. The hand- held LigaSure device was used to fully excise the tube from distal to proximal. The tube was passed off the field. The uterus was then slightly tilted to the left. The right fallopian tube was followed to its fimbrial end and noted to be quite tortuous due to adhesions tethering it to the bladder, a paratubal cyst, and the right ovary. The adhesions were lysed sharply and with electrocautery. The right fallopian tube was then grasped with two Joey clamps and elevated. The hand-held LigaSure device was used to fully excise the tube from distal to proximal. The tube was passed off the field. The hysterotomy incision was reinspected and found to be memostatic. Dmitri was placed over the raw edges. All instruments and retractors were removed. The anterior peritoneum was reapproximated in a running fashion with a 3-0 Vicryl suture. The subfascial tissues were carefully inspected and hemostasis assured. The fascia was reapproximated in a running fashion with a looped 0 Maxon suture. The subcutaneous tissues were copiously irrigated. Hemostasis was assured. The skin was closed in a subcuticular fashion with 4-0 Vicryl. Surgical glue and dressing were applied. The patient tolerated the procedure well. Sponge, lap, needle, and instrument counts were reported as correct x2. The patient was taken to the recovery room, awake, and in stable condition. She did receive 2 grams of IV Ancef preoperatively. Complications: None. Pathology: specimen obtained, sent to pathology ( Bilateral fallopian tubes) Surgery Debrief Performed: Yes Condition: stable Disposition: floor
--- NOTE | 2024-09-19 09:11 | W.PM.NB ---
Nerve Block Nerve Block Time Seen by Provider: 09:05 Date Seen: 09/19/24 Type of block requested by surgeon for post-operative analgesia: TAP Side: bilateral Time out performed: Yes Verification of patient name: Yes Verification of date of : Yes Site marking: site marked Name of person performing procedure: Michael Continuous monitoring Was continuous monitoring of O2 sat, B/P, cardiac exercise physiologist, recorded every 15 minutes?: Yes Procedure Checklist: sterile prep, needles and gloves Ultrasound guided. Images saved: Yes Medications given in 5ml increments after negative aspiration: Marcaine %: 0.25 mL: 30 Needle gauge: 20 and Exparel mL: 10 Patient tolerated procedure well: Yes Additional comments: Needle noted between internal oblique and transversus abdominus. Local spread visualized Block Charges Block Charge (with Pro Fee): TAP Bilateral Use of Ultrasound Machine for Block: Yes- US Guidance/pain block
--- NOTE | 2024-09-19 09:12 | P.ANES_ITS ---
Anesthesia Charges Start Date/Time Anesthesia Start Date: 09/19/24 Anesthesia Start Time: 07:15 Stop Date/Time Anesthesia Stop Date: 09/19/24 Anesthesia Stop Time: 09:17 Coding CPT Codes CPT Codes: ANESTH CS DELIVERY - 65726 ([id number]) P2 - PATIENT W/MILD SYST DISEASE, QK - FORMING MACHINE OPERATOR 2-4 CNCRNT ANES PROC, QX - VEHICLE INSURANCE AGENT SVC W/ MD MED DIRECTION
--- NOTE | 2024-09-19 09:12 | W.ANESCHARGE ---
Anesthesia Charges Start Date/Time Anesthesia Start Date: 09/19/24 Anesthesia Start Time: 07:15 Stop Date/Time Anesthesia Stop Date: 09/19/24 Anesthesia Stop Time: 09:17 Coding CPT Codes CPT Codes: ANESTH CS DELIVERY - 27116 ([id number]) P2 - PATIENT W/MILD SYST DISEASE, QK - UNDER CUTTING MACHINE OPERATOR 2-4 CNCRNT ANES PROC, QX - BROTH MIXER SVC W/ MD MED DIRECTION
--- NOTE | 2024-09-19 09:24 | P.ANES_ITS ---
Anesthesia Charges Start Date/Time Anesthesia Start Date: 09/19/24 Anesthesia Start Time: 07:15 Stop Date/Time Anesthesia Stop Date: 09/19/24 Anesthesia Stop Time: 09:17 Coding CPT Codes CPT Codes: ANESTH CS DELIVERY - 98426 ([id number]) P2 - PATIENT W/MILD SYST DISEASE, QX - VACCINE CUSTOMER REPRESENTATIVE SVC W/ MD MED DIRECTION, QK - PHOTOGRAPHY INSTRUCTOR 2-4 CNCRNT ANES PROC
--- NOTE | 2024-09-19 09:24 | W.ANESCHARGE ---
Anesthesia Charges Start Date/Time Anesthesia Start Date: 09/19/24 Anesthesia Start Time: 07:15 Stop Date/Time Anesthesia Stop Date: 09/19/24 Anesthesia Stop Time: 09:17 Coding CPT Codes CPT Codes: ANESTH CS DELIVERY - 53408 ([id number]) P2 - PATIENT W/MILD SYST DISEASE, QX - GLOBAL MARKETING MANAGER SVC W/ MD MED DIRECTION, QK - MANAGER COMBINATION 2-4 CNCRNT ANES PROC
--- NOTE | 2024-09-19 09:43 | W.PM.H&PU ---
History & Physical Update History & Physical Update H&P Reviewed and patient assessed: No changes noted
[2024-09-19] MEDS: ACETAMINOPHEN 500 MG TABLET 1000 MG PO ×2 (13:16→19:21)
[2024-09-20] MEDS: KETOROLAC 30 MG/ML inj IVP ×3 (02:15→14:27)
[2024-09-20 05:55] VITALS: BP 109/68; PULSE 90; RESP 16; TEMP 36.8; O2SAT 96
[2024-09-20] MEDS: ACETAMINOPHEN 500 MG TABLET 1000 MG PO ×3 (06:06→18:26)
[2024-09-20 07:24] LABS: Hemoglobin* 10.2 gm/dL (12.0-16.0)
[2024-09-20] MEDS: DOCUSATE SODIUM 100 MG CAPSULE PO (08:48)
[2024-09-20 08:50] VITALS: BP 99/62; PULSE 67; RESP 18; TEMP 36.4; O2SAT 98
--- NOTE | 2024-09-20 10:08 | P.OBPN_ITS ---
OB - PN:Subj Subjective Date Seen: 09/20/24 Patient comments OB post-: no complaints, pain well controlled, tolerating diet and flatus present University status: Narrative: 39 yo currently POD#1 following repeat low transverse section with bilateral salpingectomies. She feels well. Pain is well controlled. Tolerating regular diet. Ambulating well. No concerns. OB - PN: Obj Exam Physical Exam: Vital signs: Temp Pulse Resp BP Pulse Ox O2 Del Method 97.6 F 67 18 99/62 98 Room Air 09/20/24 08:50 09/20/24 08:50 09/20/24 08:50 09/20/24 08:50 09/20/24 08:50 09/20/24 08:50 Constitutional: Constitutional: no acute distress Routine Neck Exam: Neck: Present normal inspection Routine Respiratory Exam: Respiratory: Present CTA bilaterally; Absent respiratory distress Routine Cardiovascular Exam: Cardiovascular: Present RRR; Absent murmur Routine Abdominal Exam: Abdominal: Present soft; Absent tenderness Fundus: Present firm Routine Extremities Exam: Extremities: Present normal inspection and pedal edema; Absent calf tenderness Routine Neurological Exam: Neurological: Present alert and oriented X3 Routine Psychiatric Exam: Psychiatric: Present normal affect Wound Management: Method: suture Examination: Present clean, dry and intact; Absent erythematous Comments: Pfannenstiel incision OB - PN: Obj Data Labs Labs: Laboratory Results - last 24 hr 09/20/24 06:54 Hgb 10.2 L OB - PN: A/P Delivery Plan day: 1 Plan: routine care Comments: Anticipate discharge tomorrow.
[2024-09-20 14:29] VITALS: BP 109/71; PULSE 67; RESP 18; TEMP 36.6; O2SAT 98
[2024-09-20 19:17] LABS: Rapid Plasma Reagin (RPR) Non Reactive (Non Reactive)
[2024-09-20] MEDS: SIMETHICONE 80 MG TAB.CHEW PO (19:41)
[2024-09-20 19:42] VITALS: BP 111/71; PULSE 95; RESP 17; TEMP 37.1; O2SAT 98
[2024-09-20] MEDS: IBUPROFEN 600 MG TABLET PO (20:33)
[2024-09-21] MEDS: ACETAMINOPHEN 500 MG TABLET 1000 MG PO ×2 (00:30→06:43)
[2024-09-21] MEDS: IBUPROFEN 600 MG TABLET PO ×2 (02:37→08:37)
[2024-09-21 04:13] VITALS: BP 97/58; PULSE 88; RESP 16; TEMP 36.4; O2SAT 97
[2024-09-21 08:34] VITALS: BP 123/68; PULSE 87; RESP 18; TEMP 36.7; O2SAT 97
[2024-09-21] MEDS: DOCUSATE SODIUM 100 MG CAPSULE PO (08:37)
--- NOTE | 2024-09-21 10:20 | PM.OBDSVD1 ---
DS: Providers Provider Date Seen: 09/21/24 Date of admission: 09/19/24 05:43 Primary care physician: Laura Lowery MD Admitting Clinician: Ivette Lloyd MD Attending Physician on discharge: Ivette Lloyd MD Date of Discharge: 09/21/24 DS: Diagnosis Discharge Diagnosis (1) care following delivery: Status: Acute (2) delivery delivered: Status: Acute Problem details: x3 1: Arrest of dilation and descent 2: repeat 3: repeat with bilateral salpingectomy (3) Anemia due to blood loss, acute: Status: Acute Exam Const: Vital Signs, click to edit/add: Vital Signs - 24 hr 09/20/24 14:29 09/20/24 19:42 09/21/24 04:13 Temperature 97.8 F 98.7 F 97.6 F Pulse Rate [Pulse Oximeter] 67 95 88 Respiratory Rate 18 17 16 Blood Pressure [Ri ght Arm] 109/71 111/71 97/58 L Pulse Oximetry 98 98 97 Oxygen Delivery Me thod Room Air Room Air Room Air 09/21/24 08:34 Temperature 98.1 F Pulse Rate [Pulse Oximeter] 87 Respiratory Rate 18 Blood Pressure [Ri ght Arm] 123/68 Pulse Oximetry 97 Oxygen Delivery Me thod Room Air Documenting provider has reviewed patient's vital signs: yes Common normals: no apparent distress, oriented x3, healthy appearing and alert General appearance: cooperative and comfortable HENMT: Common normals: normocephalic Head and scalp: normocephalic Resp: Common normals: normal respiratory effort Cardio: Common normals: regular rate and regular rhythm Rate: regular rate Rhythm: regular rhythm GI: Common normals: soft to palpation and non-tender Inspection: normal to inspection Palpation: soft Extremity: Common normals: normal to inspection and no pedal edema Neuro: Common normals: oriented x3 Sensorium/orientation: alert Psych: Common normals: affect normal OB - DS: Summary Hospital Course Hospital Course: The patient is a 39 year old at 39 2/7 weeks gestation that was admitted to the [facility] on 09/19/24 for repeat section with bilateral salpingectomies. She had an uncomplicated delivery. She delivered a viable female infant. She is breast feeding. the patient has done well. Her pain has been under excellent control. She has had return of bowel function. Peripartum Data delivery method: Repeat Section Procedures: Procedures Operation Date: 09/19/24 07:15 Actual Procedure Side Surgeon p Repeat Section, Bilateral Tubal Ligation Ivette Lloyd MD Procedures: tubal ligation/salpingectomy complications: none Infant Gender: Female Discharge Plan: Home Status at Discharge Functional status at discharge: independent ambulation Overall status at discharge: patient is back to baseline Time Spent with Patient Time attestation: Total time spent providing and/or coordinating discharge services: Time spent: Less than 30 minutes Discharge Plan Discharge Disposition: Home, Self-Care Date of Admission: 09/19/24 05:43 Attending Provider on Discharge: Ivette Lloyd Primary Care Provider: Laura Lowery Condition: Stable Anticipated Discharge Date/Time: 09/21/24 10:27 Discharge Medications: New ibuprofen 600 mg Tablet 600 mg PO Q6H PRN (Reason: Pain) Qty: 30 0RF Continued DHA 200 mg capsule PO aspirin [Aspirin Childrens] 81 mg tablet,chewable 81 mg PO QDAY Discharge Orders: Discharge Order (Routine); Ordered 09/21/24 Ordered By: Ivette Lloyd Patient Education: OB Over the Counter Medication Information, OB /Breast Feeding Discharge Diet: Regular Follow Up Appointments: Laura Lowery MD [Primary Care Provider, [facility]] Forms: MyHealth Info Instructions DS:Data Additional Comments Additional comments: Hgb 10.2
== END 2024-09-21 11:25 | disposition home or self-care (01) | DRG 784 ==
PROVIDERS: Admitting Provider Obstetrics & Gynecology; PCP Family Medicine; Visit Provider Obstetrics & Gynecology
PROC: 10D00Z1 Extraction of Products of Conception, Low, Open Approach (ICD-10-PCS; CPT 59514; principal; 2024-09-19 07:15)
DX: O34.211 Maternal care for low transverse scar from previous cesarean delivery (principal); D62 Acute posthemorrhagic anemia; O90.81 Anemia of the puerperium; G89.18 Other acute postprocedural pain; Z30.2 Encounter for sterilization; Z3A.39 39 weeks gestation of pregnancy; Z37.0 Single live birth
CPT/HCPCS: 01961; 36415; 64486; 76942; 85018; 85025; 86592; 86850; 86900; 86901; 88302; A4314; A9270; J0665; J0666; J0690; J1100; J1885; J2003; J2274; J2405; J2590; J3010; J7120

== ENCOUNTER 2025-01-22 08:48 | Outpatient (CLI) | payer OTHER, SELFPAY | END 2025-01-22 08:49 | disposition home or self-care (01) | LOC: NFLDREF 01-27 15:10 | PROVIDERS: PCP Family Medicine; Referring Provider Family Medicine; Visit Provider Registered Nurse | DX: E78.00 Pure hypercholesterolemia, unspecified (principal) | CPT/HCPCS: 80061 ==

== ENCOUNTER 2025-03-18 15:09 | Outpatient (CLI) | payer OTHER, SELFPAY | END 2025-03-18 15:10 | disposition home or self-care (01) | PROVIDERS: PCP Family Medicine; Visit Provider Family Medicine | DX: Z00.00 Encounter for general adult medical examination without abnormal findings (principal) | CPT/HCPCS: 80053; 80061 ==